=== PATIENT | male | born 1965 | race American Indian/Alaskan Native ===

== ENCOUNTER 2016-02-26 09:00 | Emergency (ER) | payer MEDICAID ==
[2016-02-26 09:15] VITALS: BP 138/91
--- NOTE | 2016-02-26 09:25 | Emergency Department Report ---
Chief Complaint: Extremity Injury, Lower Stated Complaint: SWOLLEN RIGHT SIDE OF KNEE Time Seen by Provider: 02/26/16 09:20 - HPI History of Present Illness: 51-year-old male comes in for complaint of right knee and swelling 1 week. Patient was told by his urologist that he needed to give up blood because he is blood is too thick. Patient did make an effort to go to the [facility] and they were not take his blood secondary to his past medical history of diabetes hypertension and DVT. Patient comes in now for concern of a possible DVT in that right leg considering he's had a past history. Patient denies any chest pain shortness of breathing no fever no chills - Exam Vital Signs: Vital Signs 02/26/16 09:10 Temperature 98.3 F Pulse Rate 101 H Respiratory 16 Rate Blood Pressure 138/91 O2 Sat by Pulse 97 Oximetry Physical Exam: Patient is alert and oriented 3. Cardiovascular: S1-S2 little tachycardia. Respiratory: Clear to auscultation bilateral no wheezing Extremities: Trace edema bilateral lower legs is some swelling just above the knee of the right leg. Patient is wobbling. MSE screening note: Focused history and physical exam performed. Due to findings the following was ordered: Appropriate labs ordered CBC CMP. In the main ER. ED Disposition for MSE Condition: Stable
[2016-02-26 09:37] LABS: Basophils % (Auto) 1.4 % (0.0-1.8); Eosinophils % (Auto) 1.3 % (0.0-4.3); Hematocrit 49.4 % (35.5-45.6); Hemoglobin 15.6 gm/dl (11.8-15.2); Mean Corpuscular HGB Conc 32 % (32-34); Mean Corpuscular Volume 74 fl (84-94); Platelet Count 298 K/mm3 (140-440); Red Blood Count 6.68 M/mm3 (3.65-5.03); Red Cell Distribution Width 17.3 % (13.2-15.2); White Blood Count 10.8 K/mm3 (4.5-11.0)
[2016-02-26 09:49] LABS: Mean Corpuscular Hemoglobin 23 pg (28-32)
[2016-02-26 09:52] LABS: BUN/Creatinine Ratio 9.47; Calcium 9.5 mg/dL (8.4-10.2); Chloride 105.6 mmol/L (98-107); Potassium 4.4 mmol/L (3.6-5.0)
--- NOTE | 2016-03-01 05:54 | ED Elopement Review ---
ED Pt Elopement review - Results review Lab results: Laboratory Tests 02/26/16 02/26/16 09:26 09:26 WBC 10.8 RBC 6.68 H Hgb 15.6 H Hct 49.4 H MCV 74 L MCH 23 L MCHC 32 RDW 17.3 H Plt Count 298 Lymph % (Auto) 32.3 Stephenson % (Auto) 11.9 H Eos % (Auto) 1.3 Baso % (Auto) 1.4 Lymph # 3.5 Stephenson # 1.3 H Eos # 0.1 Baso # 0.2 H Seg Neutrophils % 53.1 Seg Neutrophils # 5.7 Sodium 143 Potassium 4.4 Chloride 105.6 Carbon Dioxide 23 Anion Gap 19 BUN 18 Creatinine 1.9 H Estimated GFR 45 BUN/Creatinine Ratio 9.47 Glucose 126 H Calcium 9.5 - Call Back decision Pt Call Back Decision: No action required
== END 2016-02-27 | disposition left against medical advice (07) ==
LOC: ED 09:00
DX: M25.461 Effusion, right knee (principal); M25.561 Pain in right knee; E11.9 Type 2 diabetes mellitus without complications; I10 Essential (primary) hypertension; Z86.718 Personal history of other venous thrombosis and embolism; Z53.21 Procedure and treatment not carried out due to patient leaving prior to being seen by health care provider
CPT/HCPCS: 36415; 80048; 85025

== ENCOUNTER 2016-12-01 14:04 | Outpatient (CLI) | payer MEDICAID ==
[2016-12-01 14:38] LABS: Basophils % (Auto) 0.3 % (0.0-1.8); Eosinophils % (Auto) 1.5 % (0.0-4.3); Hematocrit 48.3 % (35.5-45.6); Hemoglobin 15.5 gm/dl (11.8-15.2); Mean Corpuscular HGB Conc 32 % (32-34); Mean Corpuscular Volume 74 fl (84-94); Platelet Count 265 K/mm3 (140-440); Red Cell Distribution Width 17.2 % (13.2-15.2); White Blood Count 8.6 K/mm3 (4.5-11.0)
[2016-12-01 14:43] LABS: Mean Corpuscular Hemoglobin 24 pg (28-32)
[2016-12-01 14:44] LABS: Bilirubin,Urine NEG (Negative); Blood,Urine NEG (Negative); Ketones,Urine NEG (Negative); Leukocyte Esterase,Urine NEG (Negative); Nitrite,Urine NEG (Negative); Protein,Urine <15 mg/dL mg/dL (Negative); RBC,Urine < 1.0 /HPF (0.0-6.0); Urobilinogen,Urine < 2.0 mg/dL (<2.0); WBC,Urine < 1.0 /HPF (0.0-6.0)
[2016-12-01 14:52] LABS: Calcium 9.3 mg/dL (8.4-10.2); Chloride 106.6 mmol/L (98-107); Phosphorous 2.6 mg/dL (2.5-4.5); Potassium 4.1 mmol/L (3.6-5.0)
[2016-12-03 15:19] LABS: Vitamin D, 25-OH, Total 36 ng/mL (30-100)
== END 2016-12-01 14:05 | disposition home or self-care (01) ==
LOC: LAB 14:04
PROVIDERS: ATTEND Internal Medicine Nephrology
DX: I12.9 Hypertensive chronic kidney disease with stage 1 through stage 4 chronic kidney disease, or unspecified chronic kidney disease (principal); N18.3 Chronic kidney disease, stage 3 (moderate); E11.22 Type 2 diabetes mellitus with diabetic chronic kidney disease; N25.81 Secondary hyperparathyroidism of renal origin; K21.9 Gastro-esophageal reflux disease without esophagitis; D72.829 Elevated white blood cell count, unspecified
CPT/HCPCS: 36415; 80048; 81001; 82306; 82570; 83970; 84100; 84156; 85025

== ENCOUNTER 2017-03-16 13:35 | Outpatient (CLI) | payer MEDICAID ==
[2017-03-16 13:46] LABS: Basophils # (Auto) 0.1 K/mm3 (0.0-0.1); Basophils % (Auto) 1.1 % (0.0-1.8); Eosinophils # (Auto) 0.1 K/mm3 (0.0-0.4); Eosinophils % (Auto) 0.8 % (0.0-4.3); Hematocrit 51.6 % (35.5-45.6); Hemoglobin 16.8 gm/dl (11.8-15.2); Lymphocytes # (Auto) 3.8 K/mm3 (1.2-5.4); Lymphocytes % (Auto) 35.1 % (13.4-35.0); Mean Corpuscular HGB Conc 33 % (32-34); Mean Corpuscular Volume 74 fl (84-94); Monocytes # (Auto) 0.9 K/mm3 (0.0-0.8); Monocytes % (Auto) 8.3 % (0.0-7.3); Platelet Count 314 K/mm3 (140-440); Red Blood Count 7.01 M/mm3 (3.65-5.03); Red Cell Distribution Width 16.9 % (13.2-15.2)
[2017-03-16 13:56] LABS: Mean Corpuscular Hemoglobin 24 pg (28-32)
[2017-03-16 14:00] LABS: Calcium 9.8 mg/dL (8.4-10.2)
[2017-03-17 11:03] LABS: Creatinine,Urine 373.4 mg/dL (0.1-20.0); Protein/Creatinine Ratio,Urine 0.1
== END 2017-03-16 13:36 | disposition home or self-care (01) ==
LOC: LAB 13:35
PROVIDERS: ATTEND Internal Medicine Nephrology
DX: I12.9 Hypertensive chronic kidney disease with stage 1 through stage 4 chronic kidney disease, or unspecified chronic kidney disease (principal); N18.3 Chronic kidney disease, stage 3 (moderate); E11.22 Type 2 diabetes mellitus with diabetic chronic kidney disease; K21.9 Gastro-esophageal reflux disease without esophagitis; N25.81 Secondary hyperparathyroidism of renal origin
CPT/HCPCS: 36415; 80048; 82570; 84156; 85025